=== PATIENT | female | born 1975 | race Two or more races ===

== ENCOUNTER 2023-08-22 09:37 | Emergency (ER) | payer OTHER ==
[~2023-08-22] VITALS: Ht 157.5 cm; Wt 66.6 kg
[2023-08-22 11:17] VITALS: BP 142/76; PULSE 68; RESP 16; TEMP 98.3; O2SAT 98
[2023-08-22] MEDS ORDERED: NABU-72 PO (11:55)
== END 2023-08-22 12:00 | disposition home or self-care (01) ==
LOC: ER 09:37
DX: M25.521 Pain in right elbow (principal)
CPT/HCPCS: 73080